=== PATIENT | male | born 1985 | race Caucasian/White ===

== ENCOUNTER 2016-07-06 05:11 | Emergency (ER) | payer OTHER ==
[2016-07-06] MEDS ORDERED: IBUPROFEN 600 MG TAB As Ordered ONE (06:11)
--- NOTE | 2016-07-06 06:24 | EDDOCDS ---
Physician Documentation [facility] Name: Van Schilling Age: 31 yrs Sex: Male : 1985 Arrival Date: 07/06/2016 Time: 05:11 Bed 12 Private MD: Van Garcia P. Disposition: 07/06 05:55 Critical Care: Critical care not applicable. pc Disposition: 07/06/16 06:03 Discharged to Home/Self Care. Impression: Strain of muscle, fascia and tendon of triceps, left arm. - Condition is Stable. - Discharge Instructions: Muscle Strain. - Prescriptions for Naprosyn 500 mg Oral Tablet - take 1 tablet by ORAL route 2 times per day take with food; 30 tablet. - Medication Reconciliation, Local Pharmacy Hours, Work Release Form - 2 day form. - Follow up: Orthopaedics, [facility]; When: Call to arrange an appointment; Reason: To establish care. - Problem is new. - Symptoms have improved. HPI: 05:55 This 31 yrs old Male presents to ER via Walkin/Carried/Asstd with complaints pc of Elbow Injury. 05:55 The history is obtained from the patient. 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 He says it occurred in a twisting motion while grasping him and pulling him back and to the right. It did not hurt immediately but has become painful since. At their worst, the symptoms were a 3 out of 10. In the emergency department, the symptoms are unchanged. The patient has not experienced similar symptoms in the past. The patient has not recently seen a physician. Historical: - Allergies: No known drug Allergies; - Home Meds: 1. none - PMHx: none; - PSHx: none; - The history from nurses notes was reviewed: and I agree with what is documented. - Social history: Smoking status: Patient states was never smoker of tobacco. No barriers to communication noted, The patient speaks fluent Icelandic, Speaks appropriately for age. - Family history: Not pertinent. - : The pt / caregiver states he / she is not on anticoagulants. Home medication list is obtained from the patient. - Hospitalizations: : No recent hospitalization is reported. - Exposure Risk Screening:: None identified. - Immunization history:: All immunizations up-to-date. - Social history:: the patient is a non-smoker, the patient does not drink alcohol. ROS: 05:55 All systems are negative except as listed. Exam: 05:55 General Appearance: no acute distress, alert. pc 05:55 Extremities: grossly normal except: noted in the left elbow: pain over triceps tendon, worse with resisted elbow extension, no bony pain, ROM normal. No radial head pain, wrist ROM normal. NVT normal. Vital Signs: 05:18 BP 148 / 84; Pulse 81; Resp 16; Temp 97.8(T); Pulse Ox 97% ; Weight 115.67 kg / 255.01 cz lbs; Height 6 ft. 3 in. (190.50 cm); 06:17 BP 141 / 74; Pulse 77; Resp 18; Temp 96.8(O); Pulse Ox 97% on R/A; Pain 2/10; jmv 05:18 Body Mass Index 31.87 (115.67 kg, 190.50 cm) cz MDM: 05:44 Elbow, Complete Ordered. EDMS 05:55 Differential Diagnosis: left triceps tendon strain. Plan: imaging. meds. Data reviewed: old medical records, vital signs, nurses notes, all radiology studies and available results. Test interpretation: X-RAY - interpreted by me, Elbow Left Normal. The patient has been re-examined and re-evaluated. The patient's symptoms have mildly improved after treatment. Disposition: The historical points, examination findings, and any diagnostic results supporting the provided diagnosis, were discussed with the patient or legal guardian. The need for outpatient follow up with the provider listed on their discharge instructions was discussed. They were encouraged to return to [facility], or the nearest ED, if symptoms worsen/persist, or for any other questions/concerns. 05:56 Financial registration complete. hs2 05:56 [facility] Payment Agreement was scanned into [employer] and attached to record. hs2 06:04 Ibuprofen 600 mg PO once ordered. pc Administered Medications: 06:10 Drug: Ibuprofen 600 mg [ibuprofen 600 mg tablet (1 tabs)] Route: PO; cf2 06:17 Follow up: Response: Pt left department before re-evaluation is appropriate cf2 Signatures: [facility] Tab Oden MD MD Tori Jean-Baptsite RN RN jan Zecher, Calvin, RN RN cz Stanton, Hillary, Reg Reg hs2 Stefani Buchanan RN RN cf2 The chart was reviewed and I authenticate all verbal orders and agree with the evaluation and treatment provided.Attachments: 05:56 [facility] Payment Agreement hs2 MTDD
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
--- NOTE | 2016-07-06 15:10 | REP ---
LEFT ELBOW, FOUR VIEWS: There is no evidence of an acute fracture, dislocation or intrinsic bone disease. IMPRESSION: No fracture or dislocation. Signed by Horace Oconnell MD 07/06/2016 03:28 P
--- NOTE | 2016-07-08 07:24 | EDDOCDS ---
Physician Documentation [facility] Name: Van Schilling Age: 31 yrs Sex: Male : 1985 Arrival Date: 07/06/2016 Time: 05:11 Bed 12 Private MD: Van Garcia P. Disposition: 07/06 05:55 Critical Care: Critical care not applicable. pc Disposition: 07/06/16 06:03 Discharged to Home/Self Care. Impression: Strain of muscle, fascia and tendon of triceps, left arm. - Condition is Stable. - Discharge Instructions: Muscle Strain. - Prescriptions for Naprosyn 500 mg Oral Tablet - take 1 tablet by ORAL route 2 times per day take with food; 30 tablet. - Medication Reconciliation, Local Pharmacy Hours, Work Release Form - 2 day form. - Follow up: Orthopaedics, [facility]; When: Call to arrange an appointment; Reason: To establish care. - Problem is new. - Symptoms have improved. HPI: 05:55 This 31 yrs old Male presents to ER via Walkin/Carried/Asstd with complaints pc of Elbow Injury. 05:55 The history is obtained from the patient. 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 He says it occurred in a twisting motion while grasping him and pulling him back and to the right. It did not hurt immediately but has become painful since. At their worst, the symptoms were a 3 out of 10. In the emergency department, the symptoms are unchanged. The patient has not experienced similar symptoms in the past. The patient has not recently seen a physician. Historical: - Allergies: No known drug Allergies; - Home Meds: 1. none - PMHx: none; - PSHx: none; - The history from nurses notes was reviewed: and I agree with what is documented. - Social history: Smoking status: Patient states was never smoker of tobacco. No barriers to communication noted, The patient speaks fluent Uzbek, Speaks appropriately for age. - Family history: Not pertinent. - : The pt / caregiver states he / she is not on anticoagulants. Home medication list is obtained from the patient. - Hospitalizations: : No recent hospitalization is reported. - Exposure Risk Screening:: None identified. - Immunization history:: All immunizations up-to-date. - Social history:: the patient is a non-smoker, the patient does not drink alcohol. ROS: 05:55 All systems are negative except as listed. Exam: 05:55 General Appearance: no acute distress, alert. pc 05:55 Extremities: grossly normal except: noted in the left elbow: pain over triceps tendon, worse with resisted elbow extension, no bony pain, ROM normal. No radial head pain, wrist ROM normal. NVT normal. Vital Signs: 05:18 BP 148 / 84; Pulse 81; Resp 16; Temp 97.8(T); Pulse Ox 97% ; Weight 115.67 kg / 255.01 cz lbs; Height 6 ft. 3 in. (190.50 cm); 06:17 BP 141 / 74; Pulse 77; Resp 18; Temp 96.8(O); Pulse Ox 97% on R/A; Pain 2/10; jmv 05:18 Body Mass Index 31.87 (115.67 kg, 190.50 cm) cz MDM: 05:44 Elbow, Complete Ordered. EDMS 05:55 Differential Diagnosis: left triceps tendon strain. Plan: imaging. meds. Data reviewed: old medical records, vital signs, nurses notes, all radiology studies and available results. Test interpretation: X-RAY - interpreted by me, Elbow Left Normal. The patient has been re-examined and re-evaluated. The patient's symptoms have mildly improved after treatment. Disposition: The historical points, examination findings, and any diagnostic results supporting the provided diagnosis, were discussed with the patient or legal guardian. The need for outpatient follow up with the provider listed on their discharge instructions was discussed. They were encouraged to return to [facility], or the nearest ED, if symptoms worsen/persist, or for any other questions/concerns. 05:56 Financial registration complete. hs2 05:56 [facility] [place] Agreement was scanned into [employer] and attached to record. hs2 06:04 Ibuprofen 600 mg PO once ordered. pc Administered Medications: 06:10 Drug: Ibuprofen 600 mg [ibuprofen 600 mg tablet (1 tabs)] Route: PO; cf2 06:17 Follow up: Response: Pt left department before re-evaluation is appropriate cf2 Signatures: [facility] Tab Oden MD MD Tori Jean-Baptiste RN RN jan Zecher, Calvin, RN RN cz Stanton, Hillary, Reg Reg hs2 Stefani BuchananRN RN cf2 The chart was reviewed and I authenticate all verbal orders and agree with the evaluation and treatment provided.Attachments: 05:56 [facility] Payment Agreement hs2 Chart Complete MTDD
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
--- NOTE | 2016-07-08 07:24 | EDDOCDS ---
Physician Documentation [facility] Name: Van Schilling Age: 31 yrs Sex: Male : 1985 Arrival Date: 07/06/2016 Time: 05:11 Bed 12 Private MD: Van Garcia P. Disposition: 07/06 05:55 Critical Care: Critical care not applicable. pc Disposition: 07/06/16 06:03 Discharged to Home/Self Care. Impression: Strain of muscle, fascia and tendon of triceps, left arm. - Condition is Stable. - Discharge Instructions: Muscle Strain. - Prescriptions for Naprosyn 500 mg Oral Tablet - take 1 tablet by ORAL route 2 times per day take with food; 30 tablet. - Medication Reconciliation, Local Pharmacy Hours, Work Release Form - 2 day form. - Follow up: Orthopaedics, [facility]; When: Call to arrange an appointment; Reason: To establish care. - Problem is new. - Symptoms have improved. HPI: 05:55 This 31 yrs old Male presents to ER via Walkin/Carried/Asstd with complaints pc of Elbow Injury. 05:55 The history is obtained from the patient. 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 He says it occurred in a twisting motion while grasping him and pulling him back and to the right. It did not hurt immediately but has become painful since. At their worst, the symptoms were a 3 out of 10. In the emergency department, the symptoms are unchanged. The patient has not experienced similar symptoms in the past. The patient has not recently seen a physician. Historical: - Allergies: No known drug Allergies; - Home Meds: 1. none - PMHx: none; - PSHx: none; - The history from nurses notes was reviewed: and I agree with what is documented. - Social history: Smoking status: Patient states was never smoker of tobacco. No barriers to communication noted, The patient speaks fluent Kinyarwanda, Speaks appropriately for age. - Family history: Not pertinent. - : The pt / caregiver states he / she is not on anticoagulants. Home medication list is obtained from the patient. - Hospitalizations: : No recent hospitalization is reported. - Exposure Risk Screening:: None identified. - Immunization history:: All immunizations up-to-date. - Social history:: the patient is a non-smoker, the patient does not drink alcohol. ROS: 05:55 All systems are negative except as listed. Exam: 05:55 General Appearance: no acute distress, alert. pc 05:55 Extremities: grossly normal except: noted in the left elbow: pain over triceps tendon, worse with resisted elbow extension, no bony pain, ROM normal. No radial head pain, wrist ROM normal. NVT normal. Vital Signs: 05:18 BP 148 / 84; Pulse 81; Resp 16; Temp 97.8(T); Pulse Ox 97% ; Weight 115.67 kg / 255.01 cz lbs; Height 6 ft. 3 in. (190.50 cm); 06:17 BP 141 / 74; Pulse 77; Resp 18; Temp 96.8(O); Pulse Ox 97% on R/A; Pain 2/10; jmv 05:18 Body Mass Index 31.87 (115.67 kg, 190.50 cm) cz MDM: 05:44 Elbow, Complete Ordered. EDMS 05:55 Differential Diagnosis: left triceps tendon strain. Plan: imaging. meds. Data reviewed: old medical records, vital signs, nurses notes, all radiology studies and available results. Test interpretation: X-RAY - interpreted by me, Elbow Left Normal. The patient has been re-examined and re-evaluated. The patient's symptoms have mildly improved after treatment. Disposition: The historical points, examination findings, and any diagnostic results supporting the provided diagnosis, were discussed with the patient or legal guardian. The need for outpatient follow up with the provider listed on their discharge instructions was discussed. They were encouraged to return to [facility], or the nearest ED, if symptoms worsen/persist, or for any other questions/concerns. 05:56 Financial registration complete. hs2 05:56 [facility] [place] Payment Agreement was scanned into [employer] and attached to record. hs2 06:04 Ibuprofen 600 mg PO once ordered. pc Administered Medications: 06:10 Drug: Ibuprofen 600 mg [ibuprofen 600 mg tablet (1 tabs)] Route: PO; cf2 06:17 Follow up: Response: Pt left department before re-evaluation is appropriate cf2 Signatures: [facility] Tab Oden MD MD Tori Jean-Baptiste RN RN jan Zecher, Calvin, RN RN cz Stanton, Hillary, Reg Reg hs2 Stefani BuchananRN RN cf2 The chart was reviewed and I authenticate all verbal orders and agree with the evaluation and treatment provided.Attachments: 05:56 [facility] Payment Agreement hs2 Chart Complete MTDD
== END 2016-07-06 06:24 | disposition home or self-care (01) ==
LOC: M ED 05:11
DX: S46.312A Strain of muscle, fascia and tendon of triceps, left arm, initial encounter (principal); X50.9XXA Other and unspecified overexertion or strenuous movements or postures, initial encounter; Y92.89 Other specified places as the place of occurrence of the external cause; Y93.89 Activity, other specified; Y99.0 Civilian activity done for income or pay

== ENCOUNTER 2017-05-20 03:43 | Emergency (ER) | payer OTHER ==
[~2017-05-20] VITALS: Ht 190.5 cm; Wt 117.3 kg
[2017-05-20 03:43] VITALS: BP 143/91
[2017-05-20] MEDS ORDERED: ZYRT10TA2 PO (03:48)
== END 2017-05-20 04:15 | disposition home or self-care (01) ==
LOC: M ED 03:43
DX: J70.5 Respiratory conditions due to smoke inhalation (principal); Z79.899 Other long term (current) drug therapy

== ENCOUNTER → 2017-06-07 | Outpatient (CLI) | payer OTHER ==
[~2017-06-07] MED LIST: ZYRT10TA2 PO
[2017-06-07 16:40] LABS: BASO # 0.1 10^3/uL (0.0-0.2); BASO % 1.1 % (0.0-1.0); EOS # 0.3 10^3/uL (0.0-0.50); IMMATURE GRANULOCYTE % 0.4 % (0-0); LYMPH # 2.1 10^3/uL (1.5-6.5); LYMPH % 25.2 % (24.0-44.0); MEAN CORPUSCULAR HEMOGLOBIN 28.1 pg (27.0-33.0); MEAN CORPUSCULAR HGB CONC 33.3 g/dl (32.0-36.5); MEAN CORPUSCULAR VOLUME 84.2 fl (80.0-96.0); MONO # 0.8 10^3/uL (0.0-0.8); NEUTROPHILS % 60.3 % (36.0-66.0); PLATELET COUNT, AUTOMATED 270 10^3/uL (150-450); RED CELL DISTRIBUTION WIDTH 11.9 % (11.5-14.5); WHITE BLOOD COUNT 8.3 10^3/uL (4.0-10.0)
[2017-06-07 17:49] LABS: THYROXINE (T4) 10.2 UG/DL (4.5-12.0)
[2017-06-07 18:48] LABS: ERYTHROCYTE SEDIMENTATION RATE 4 mm/hr (0-15)
[2017-06-09 14:21] LABS: SJOGREN'S ANTI SS-A <0.2 AI (0.0-0.9); SJOGREN'S ANTI SS-B <0.2 AI (0.0-0.9)
== END ==
LOC: M WUC 15:16
PROVIDERS: ATTEND Nurse Practitioner Family
DX: L93.0 Discoid lupus erythematosus (principal); M79.3 Panniculitis, unspecified; R53.83 Other fatigue

== ENCOUNTER → 2018-05-29 | Outpatient (CLI) | payer OTHER ==
[2018-05-29 17:02] LABS: BASO # 0.1 10^3/uL (0.0-0.2); EOS # 0.3 10^3/uL (0.0-0.50); EOS % 3.6 % (0.0-3.0); IMMATURE GRANULOCYTE % 0.5 % (0-3.0); LYMPH # 1.9 10^3/uL (1.5-4.5); LYMPH % 24.2 % (24.0-44.0); MEAN CORPUSCULAR HEMOGLOBIN 29.1 pg (27.0-33.0); MEAN CORPUSCULAR VOLUME 85.5 fl (80.0-96.0); MONO # 0.7 10^3/uL (0.0-0.8); MONO % 9.1 % (0.0-5.0); NEUTROPHILS # 4.7 10^3/uL (1.8-7.7); NEUTROPHILS % 61.6 % (36.0-66.0); PLATELET COUNT, AUTOMATED 232 10^3/uL (150-450); RED CELL DISTRIBUTION WIDTH 11.9 % (11.5-14.5); WHITE BLOOD COUNT 7.7 10^3/uL (4.0-10.0)
[2018-05-29 17:28] LABS: ALBUMIN 4.3 GM/DL (3.2-5.2); ALBUMIN/GLOBULIN RATIO 1.59 (1.00-1.93); ALKALINE PHOSPHATASE 41 U/L (45-117); ALT/SGPT 48 U/L (12-78); ANION GAP 6 MEQ/L (8-16); AST/SGOT 20 U/L (7-37); BILIRUBIN,TOTAL 0.7 MG/DL (0.2-1.0); BLOOD UREA NITROGEN 19 MG/DL (7-18); CALCIUM LEVEL 9.2 MG/DL (8.5-10.1); CARBON DIOXIDE LEVEL 30 MEQ/L (21-32); CHLORIDE LEVEL 102 MEQ/L (98-107); CHOLESTEROL LEVEL 139 MG/DL (<200); CHOLESTEROL RISK RATIO 3.088 (<5); CREATININE FOR GFR 1.06 MG/DL (0.70-1.30); GLOMERULAR FILTRATION RATE > 60.0 (>60); GLUCOSE, FASTING 85 MG/DL (70-100); HDL CHOLESTEROL 45 MG/DL (>40); LDL CHOLESTEROL 78 MG/DL (<100); NON-HDL-C 94 MG/DL; SODIUM LEVEL 138 MEQ/L (136-145); TRIGLYCERIDES LEVEL 82 MG/DL (<150)
== END ==
LOC: M WUC 14:31
DX: Z00.00 Encounter for general adult medical examination without abnormal findings (principal)
CPT/HCPCS: 80053

== ENCOUNTER → 2020-07-16 | Outpatient (CLI) | payer OTHER ==
[~2020-07-16] MED LIST changes: +ZYRT10CA5 PO; -ZYRT10TA2 PO
[2020-07-16 16:58] LABS: ALBUMIN 4.5 GM/DL (3.2-5.2); ALT/SGPT 35 U/L (12-78); BILIRUBIN,TOTAL 0.8 MG/DL (0.2-1.0); BLOOD UREA NITROGEN 15 MG/DL (7-18); CALCIUM LEVEL 9.4 MG/DL (8.5-10.1); CARBON DIOXIDE LEVEL 29 MEQ/L (21-32); CHLORIDE LEVEL 105 MEQ/L (98-107); CHOLESTEROL LEVEL 120 MG/DL (<200); FREE T4 1.15 NG/DL (0.76-1.46); GLOMERULAR FILTRATION RATE > 60.0 (>60); GLUCOSE, FASTING 95 MG/DL (70-100); HDL CHOLESTEROL 43 MG/DL (>40); LDL CHOLESTEROL 61 MG/DL (<100); NON-HDL-C 77 MG/DL; SODIUM LEVEL 141 MEQ/L (136-145); TOTAL PROTEIN 7.3 GM/DL (6.4-8.2); TRIGLYCERIDES LEVEL 80 MG/DL (<150)
== END ==
LOC: M WUC 10:50
PROVIDERS: ATTEND Nurse Practitioner Family
DX: Z00.00 Encounter for general adult medical examination without abnormal findings (principal)

== ENCOUNTER → 2020-10-01 | Outpatient (CLI) | payer OTHER ==
--- NOTE | 2020-10-02 15:35 | SLEEPCENT ---
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 There was 6 hours and 14 minutes of data reviewed. There was 304 minutes of sleep identified. Sleep latency was normal at 5.5 minutes. REM sleep was not achieved. Sleep architecture showed poor progression. Overall sleep efficiency was 82.1%. The electrocardiogram showed a sinus rhythm with an average heart rate of 60 beats per minute. Rate ranged 50-80 beats per minute. EEG showed reasonably normal waveforms, mild background coarsening. No focal events were identified. There were 50 respiratory events identified of 10 seconds in duration or greater for an apnea-hypopnea index of 9.9. The events were obstructive, not exclusive to sleep stage nor body posture. Arousals from respiratory events occurred 4.2 times per hour, and oxygen desaturations were seen below 90%. There was some minor activity in the limb leads. Limb movement arousal index was 3. IMPRESSION: 1. Obstructive sleep apnea syndrome (G47.33). RECOMMENDATION: The patient should be encouraged to return to the sleep disorder center for pressure therapy. In the interim, alcohol and sedative avoidance should be practiced and caution exercised during the operation of motor vehicles.
== END ==
LOC: M SLEEP 06:41
PROVIDERS: ATTEND Nurse Practitioner Adult Health
DX: G47.33 Obstructive sleep apnea (adult) (pediatric) (principal)

== ENCOUNTER → 2020-12-08 | Outpatient (REF) | payer OTHER ==
[2020-12-09 11:25] LABS: SEMEN APPEARANCE OPAQUE (OPAQUE); SEMEN VISCOSITY VISCOUS (LIQUID); SEMEN VOLUME 2.8 ml (2.0-5.0); WBC CONCENTRATION <=1 M/ml (<=1 M/ml)
== END ==
LOC: M LAB REF 11:03
PROVIDERS: ATTEND Obstetrics & Gynecology Obstetrics
DX: N46.9 Male infertility, unspecified (principal)

== ENCOUNTER → 2020-12-24 | Outpatient (CLI) | payer OTHER ==
--- NOTE | 2020-12-25 15:52 | SLEEPCENT ---
DATE: 12/24/2020 ORDERED BY: Perla Brandon NP Nocturnal polysomnography was performed for the titration of pressure therapy in this patient with obstructive sleep apnea syndrome, apnea-hypopnea index of 9.9. For testing the patient was fit with a [employer]Med Airfit F20 full face mask of large size, 4 cm of water pressure were applied to the circuit, and the lights were extinguished. Six hours and 6 minutes of data were reviewed. There were 256.5 minutes of sleep identified. Sleep latency was very short at lights out. REM latency was mildly delayed at 135 minutes. Sleep architecture was fair with two REM cycles. A period of wake after midnight resulted in reduced sleep efficiency of 70.9%. The electrocardiogram showed a sinus rhythm with an average heart rate of 58 beats per minute. EEG showed normal waveforms for wake and sleep. Respiratory events were fully palliated with CPAP at a pressure of 10 and remaining measures of sleep physiology were normal. IMPRESSION: Obstructive sleep apnea syndrome (G47.33). RECOMMENDATION: Nightly use of pressure therapy 10 cm of water. cc: Elizabeth Colón NP
== END ==
LOC: M SLEEP 06:10
PROVIDERS: ATTEND Nurse Practitioner Adult Health
DX: G47.33 Obstructive sleep apnea (adult) (pediatric) (principal)

== ENCOUNTER → 2023-10-12 | Outpatient (CLI) | payer OTHER ==
[2023-10-12 17:12] LABS: BASO # 0.1 10^3/uL (0.0-0.2); BASO % 0.9 % (0.0-1.0); EOS # 0.3 10^3/uL (0.0-0.5); HEMATOCRIT 45.1 % (42.0-52.0); HEMOGLOBIN 15.3 g/dl (13.5-17.5); LYMPH # 2.2 10^3/uL (1.5-5.0); LYMPH % 31.4 % (24.0-44.0); MEAN CORPUSCULAR HEMOGLOBIN 29.5 pg (27.0-33.0); MEAN CORPUSCULAR HGB CONC 33.9 g/dl (32.0-36.5); MEAN CORPUSCULAR VOLUME 86.9 fl (80.0-96.0); MONO # 0.5 10^3/uL (0.0-0.8); MONO % 7.2 % (2.0-8.0); NEUTROPHILS # 3.9 10^3/uL (1.5-8.5); NEUTROPHILS % 55.6 % (36.0-66.0); PLATELET COUNT, AUTOMATED 220 10^3/uL (150-450); RED BLOOD COUNT 5.19 10^6/uL (4.30-6.10); WHITE BLOOD COUNT 6.9 10^3/uL (4.0-10.0)
[2023-10-12 17:35] LABS: ALBUMIN 3.8 G/DL (3.2-5.2); ALKALINE PHOSPHATASE 35 U/L (46-116); ALT/SGPT 47 U/L (7.0-40); AST/SGOT 21 U/L (<34); BILIRUBIN,TOTAL 0.6 MG/DL (0.3-1.2); BLOOD UREA NITROGEN 18 MG/DL (9-23); CALCIUM LEVEL 8.8 MG/DL (8.5-10.1); CARBON DIOXIDE LEVEL 30 MMOL/L (20-31); CHLORIDE LEVEL 106 MMOL/L (98-107); CHOLESTEROL LEVEL 127 MG/DL (<200); CHOLESTEROL RISK RATIO 2.88 (<5); CREATININE FOR GFR 1.02 MG/DL (0.70-1.30); GLOMERULAR FILTRATION RATE > 60.0 (>60); GLUCOSE, FASTING 92 MG/DL (60-100); LDL CHOLESTEROL 65.2 MG/DL (<100); POTASSIUM SERUM 4.4 MMOL/L (3.5-5.1); SODIUM LEVEL 138 MMOL/L (136-145); TOTAL PROTEIN 6.6 G/DL (5.7-8.2); TRIGLYCERIDES LEVEL 89 MG/DL (<150)
== END ==
LOC: M WUC 14:30
PROVIDERS: ATTEND Nurse Practitioner Family
DX: Z00.00 Encounter for general adult medical examination without abnormal findings (principal)

== ENCOUNTER → 2024-10-05 | Outpatient (CLI) | payer OTHER ==
[2024-10-05 12:45] LABS: BASO # 0.1 10^3/uL (0.0-0.2); EOS # 0.2 10^3/uL (0.0-0.5); EOS % 3.4 % (0.0-3.0); HEMATOCRIT 46.6 % (42.0-52.0); HEMOGLOBIN 15.5 g/dl (13.5-17.5); LYMPH # 2.5 10^3/uL (1.5-5.0); LYMPH % 36.5 % (24.0-44.0); MEAN CORPUSCULAR HEMOGLOBIN 28.4 pg (27.0-33.0); MEAN CORPUSCULAR HGB CONC 33.3 g/dl (32.0-36.5); MEAN CORPUSCULAR VOLUME 85.3 fl (80.0-96.0); MONO # 0.6 10^3/uL (0.0-0.8); MONO % 8.1 % (2.0-8.0); NEUTROPHILS # 3.4 10^3/uL (1.5-8.5); NEUTROPHILS % 50.6 % (36.0-66.0); PLATELET COUNT, AUTOMATED 233 10^3/uL (150-450); RED BLOOD COUNT 5.46 10^6/uL (4.30-6.10); WHITE BLOOD COUNT 6.8 10^3/uL (4.0-10.0)
[2024-10-05 13:42] LABS: ALBUMIN 4.2 G/DL (3.2-5.2); ALKALINE PHOSPHATASE 36 U/L (40-129); ALT/SGPT 44 U/L (7.0-40); AST/SGOT 23 U/L (<34); BILIRUBIN,TOTAL 0.6 MG/DL (0.3-1.2); BLOOD UREA NITROGEN 15 MG/DL (9-23); CALCIUM LEVEL 9.3 MG/DL (8.5-10.1); CARBON DIOXIDE LEVEL 27 MMOL/L (20-31); CHLORIDE LEVEL 104 MMOL/L (98-107); CHOLESTEROL LEVEL 136 MG/DL (<200); CREATININE FOR GFR 0.98 MG/DL (0.70-1.30); GLOMERULAR FILTRATION RATE > 60.0 (>60); GLUCOSE, FASTING 85 MG/DL (60-100); HDL CHOLESTEROL 38.8 MG/DL (>40); LDL CHOLESTEROL 83.8 MG/DL (<100); NON-HDL-C 97.2 MG/DL; POTASSIUM SERUM 4.4 MMOL/L (3.5-5.1); SODIUM LEVEL 139 MMOL/L (136-145); TOTAL PROTEIN 7.2 G/DL (5.7-8.2); TRIGLYCERIDES LEVEL 67 MG/DL (<150)
== END ==
LOC: M WUC 10:41
PROVIDERS: ATTEND Nurse Practitioner Family
DX: Z00.00 Encounter for general adult medical examination without abnormal findings (principal)